=== PATIENT | female | born 1985 | race Caucasian/White ===

== ENCOUNTER 2020-10-21 11:02 | Emergency (ER) | payer BC ==
[~2020-10-21 11:02] MED LIST: ABILIFY2 MG PO; AMOX TR-K CLV1 EAC4 PO; BENTYL 20MG TAB20 MG PO; CEFUROXIME500 MG PO; COLACE100 MG PO; DESYREL 50 MG T50 MG PO; DOXYCYCLINE HY100 M2 PO; EFFEXOR XR 150150 MG PO; FLEXERIL 10 MG10 MG PO; FLORASTOR250 MG PO; IBUPROFEN600 MG PO; LODINE CAP 300300 MG PO; MACROBID 100 M100 MG PO; NAPROSYN EC 50500 MG GT; NORCO 5-325 TA1 EACH PO; NORCO 7.5-3251 EACH PO; NORFLEX 100 MG100 MG PO; OMNICEF 300 MG300 MG PO; PERCOCET 5/325 T1 EA PO; PREDNISONE 50 M50 MG PO; PRISTIQ 50 MG T50 MG PO; PYRIDIUM200 MG PO; ROBAXIN500 MG PO; ROXICODONE5 MG PO; TOPAMAX50 MG PO; TRAMADOL HCL50 MG PO; TRAZODONE HCL150 MG PO; VALIUM 5 MG TAB5 MG PO; VANCOMYCIN HCL125 MG PO; Voltaren Gel 1% TOP; ZANAFLEX 4 MG TA4 MG PO; ZOFRAN ODT 4 MG4 MG GT; ZOFRAN ODT 4 MG4 MG PO; ZOFRAN ODT 4 MG4 MG SL; ZOFRAN4 MG PO
== END 2020-10-21 12:30 | disposition left against medical advice (07) ==
LOC: ER1 11:02
DX: R10.9 Unspecified abdominal pain (principal); Z53.21 Procedure and treatment not carried out due to patient leaving prior to being seen by health care provider

== ENCOUNTER → 2020-12-26 | Outpatient (CLI) | payer BC | LOC: US 13:30 | DX: N64.4 Mastodynia (principal); L53.9 Erythematous condition, unspecified; Z53.8 Procedure and treatment not carried out for other reasons ==

== ENCOUNTER → 2021-01-29 | Outpatient (CLI) | payer BC | LOC: MAMO 11:57 → US 13:30 | DX: N64.4 Mastodynia (principal) | CPT/HCPCS: 76641-LT; 76641-RT; 77066; G0279 ==

== ENCOUNTER → 2021-02-19 | Outpatient (CLI) | payer BC | LOC: KOH-I 15:15 | DX: M51.36 Other intervertebral disc degeneration, lumbar region (principal) | CPT/HCPCS: 72148 ==

== ENCOUNTER 2021-04-08 21:49 | Emergency (ER) | payer BC ==
[2021-04-08 23:04] LABS: HEMOGLOBIN 12.5 gm/dl (12.3-15.3); RED BLOOD COUNT 4.26 M/UL (4.00-5.10); WHITE BLOOD COUNT 8.2 K/UL (4.5-11.0)
[2021-04-08 23:32] LABS: BUN/CREATININE RATIO 16 (0-10)
[2021-04-09] MEDS ORDERED: CEFUROXIME500 MG PO (02:39)
[2021-04-09] MEDS ORDERED: LODINE CAP 300300 MG PO (02:39)
[2021-04-09] MEDS ORDERED: ZOFRAN ODT 4 MG4 MG PO (02:39)
== END 2021-04-09 03:20 | disposition home or self-care (01) ==
LOC: ER1 21:49
PROVIDERS: Physician Assistant
DX: R07.9 Chest pain, unspecified (principal); R50.9 Fever, unspecified; J02.9 Acute pharyngitis, unspecified; N39.0 Urinary tract infection, site not specified; Z90.710 Acquired absence of both cervix and uterus; Z87.442 Personal history of urinary calculi; Z20.822 Contact with and (suspected) exposure to COVID-19
CPT/HCPCS: 0240U; 71045; 80053; 81001; 82550; 82553; 83874; 84484; 85025; 87081; 87086; 87880; 93005; 99285

== ENCOUNTER 2021-04-22 14:53 | Emergency (ER) | payer OTHER, BC ==
[2021-04-22] MEDS ORDERED: CYCLOBENZAPRINE5 MG PO (18:25)
[2021-04-22] MEDS ORDERED: MOBIC15 MG PO (18:25)
== END 2021-04-22 19:00 | disposition home or self-care (01) ==
LOC: ER1 14:53
DX: S16.1XXA Strain of muscle, fascia and tendon at neck level, initial encounter (principal); S39.012A Strain of muscle, fascia and tendon of lower back, initial encounter; S29.012A Strain of muscle and tendon of back wall of thorax, initial encounter; M25.551 Pain in right hip; M25.552 Pain in left hip; R07.81 Pleurodynia; V49.40XA Driver injured in collision with unspecified motor vehicles in traffic accident, initial encounter; Y92.410 Unspecified street and highway as the place of occurrence of the external cause; Z79.899 Other long term (current) drug therapy
CPT/HCPCS: 70450; 71046; 72125; 72128; 72131; 72170; 99284; J2704

== ENCOUNTER 2021-04-26 14:16 | Emergency (ER) | payer OTHER, BC ==
[~2021-04-26 14:16] MED LIST changes: +CYCLOBENZAPRINE5 MG PO; +MOBIC15 MG PO
[2021-04-26] MEDS ORDERED: ZOFRAN4 MG PO (15:39)
[2021-04-26] MEDS ORDERED: NORFLEX 100 MG100 MG PO (15:39)
[2021-04-26] MEDS ORDERED: PREDNISONE50 MG PO (15:39)
== END 2021-04-26 16:17 | disposition home or self-care (01) ==
LOC: ER1 14:16
DX: M54.5 Low back pain (principal); V49.9XXA Car occupant (driver) (passenger) injured in unspecified traffic accident, initial encounter
CPT/HCPCS: 81001; 96372; 99284; J1885; J2930

== ENCOUNTER 2021-07-22 17:19 | Emergency (ER) | payer OTHER, BC ==
[~2021-07-22 17:19] MED LIST changes: +PREDNISONE50 MG PO
[2021-07-22] MEDS ORDERED: CYCLOBENZAPRINE10 MG PO (20:48)
[2021-07-22] MEDS ORDERED: NAPROSYN500 MG PO (20:48)
[2021-07-23] MEDS ORDERED: AMOXICILLIN500 MG PO (11:37)
== END 2021-07-22 21:30 | disposition home or self-care (01) ==
LOC: ER1 17:19
DX: S06.9X9A Unspecified intracranial injury with loss of consciousness of unspecified duration, initial encounter (principal); S16.1XXA Strain of muscle, fascia and tendon at neck level, initial encounter; S39.012A Strain of muscle, fascia and tendon of lower back, initial encounter; S29.012A Strain of muscle and tendon of back wall of thorax, initial encounter; S20.212A Contusion of left front wall of thorax, initial encounter; S70.01XA Contusion of right hip, initial encounter; M51.36 Other intervertebral disc degeneration, lumbar region; M54.41 Lumbago with sciatica, right side; V49.40XA Driver injured in collision with unspecified motor vehicles in traffic accident, initial encounter; Y92.410 Unspecified street and highway as the place of occurrence of the external cause; W22.11XA Striking against or struck by driver side automobile airbag, initial encounter
CPT/HCPCS: 70450; 71101; 72125; 72128; 72131; 73502; 99284

== ENCOUNTER 2021-07-23 10:14 | Emergency (ER) | payer BC ==
[~2021-07-23 10:14] MED LIST changes: +CYCLOBENZAPRINE10 MG PO; +NAPROSYN500 MG PO
[2021-07-23 10:59] LABS: HEMOGLOBIN 13.5 gm/dl (12.3-15.3); RED BLOOD COUNT 4.47 M/UL (4.00-5.10)
[2021-07-23 11:26] LABS: BUN/CREATININE RATIO 8 (0-10)
[2021-07-23] MEDS ORDERED: AMOXICILLIN500 MG PO (11:37)
== END 2021-07-23 11:52 | disposition home or self-care (01) ==
LOC: ER1 10:14
PROVIDERS: Emergency Medicine
DX: K91.840 Postprocedural hemorrhage of a digestive system organ or structure following a digestive system procedure (principal); Z87.442 Personal history of urinary calculi
CPT/HCPCS: 80053; 85025; 85610; 85730; 99283

== ENCOUNTER → 2021-10-15 | Outpatient (CLI) | payer BC ==
[~2021-10-15] MED LIST changes: +AMOXICILLIN500 MG PO; +PHENERGAN 25 MG25 M1 PO
== END ==
LOC: LAB 10:24
DX: M96.1 Postlaminectomy syndrome, not elsewhere classified (principal)
CPT/HCPCS: 87081

== ENCOUNTER 2021-10-17 09:52 | Emergency (ER) | payer BC ==
[~2021-10-17 09:52] MED LIST changes: -PHENERGAN 25 MG25 M1 PO
[2021-10-17 11:05] LABS: HEMOGLOBIN 13.3 gm/dl (12.3-15.3); RED BLOOD COUNT 4.51 M/UL (4.00-5.10); WHITE BLOOD COUNT 5.4 K/UL (4.5-11.0)
[2021-10-17 11:33] LABS: BUN/CREATININE RATIO 9 (0-10)
[2021-10-17] MEDS ORDERED: PHENERGAN 25 MG25 M1 PO (12:35)
== END 2021-10-17 13:10 | disposition home or self-care (01) ==
LOC: ER1 09:52
PROVIDERS: Physician Assistant
DX: U07.1 COVID-19 (principal); R10.9 Unspecified abdominal pain; Z87.442 Personal history of urinary calculi; Z90.710 Acquired absence of both cervix and uterus
CPT/HCPCS: 71045; 80053; 81001; 85025; 96374; 96375; 99284; J1885; J2550